=== PATIENT | male | born 1950 | race Asian ===

== ENCOUNTER 2025-06-12 22:31 | Emergency (ER) | payer OTHER ==
[~2025-06-12] VITALS: Ht 165.1 cm; Wt 59.1 kg
[2025-06-12 23:36] LABS: PLATELET COUNT (AUTO) 251 K/uL (150-450); RED BLOOD CELL COUNT(AUTO) 5.22 MIL/uL (4.50-5.90); RED CELL DISTRIBUTION WIDTH 16.2 % (11.5-14.5); WHITE BLOOD COUNT (AUTO) 10.8 K/uL (4.5-11.0)
[2025-06-12 23:46] LABS: CALCIUM, TOTAL 9.5 mg/dL (8.8-10.5); CREATININE 1.50 mg/dL (0.60-1.30); GLOMERULAR FILTR. RATE CALC 46 mL/min (>60); GLUCOSE,RANDOM 154 mg/dL (70-110); SODIUM SERUM 137 mmol/L (136-145); UREA NITROGEN, BLOOD 19 mg/dL (7-18)
[2025-06-12] MEDS: ONDANSETRON HCL 4 MG/2 ML VIAL IVP ONE (23:54)
[2025-06-12 23:56] LABS: TROPONIN I-HIGH SENSITIVITY 14 ng/L (<76)
[2025-06-13] MEDS ORDERED: PANT-31 PO (00:23)
[2025-06-13] MEDS ORDERED: ONDA-104 PO (00:23)
[2025-06-13] MEDS: KETOROLAC TROMETHAMINE 30 MG/ML VIAL IVP ONE (00:44)
[2025-06-13 01:40] VITALS: BP 148/86; PULSE 86; RESP 16; TEMP 98.205296; O2SAT 98
== END 2025-06-13 01:55 | disposition home or self-care (01) ==
LOC: EMS 23:45
DX: K29.70 Gastritis, unspecified, without bleeding (principal); E11.9 Type 2 diabetes mellitus without complications; I10 Essential (primary) hypertension
CPT/HCPCS: 99284; 96374; 80048; 82962; 83690; 84484; 85025; 36415; 93005; 96375; J2405; J1885